=== PATIENT | female | born 1995 | race American Indian/Alaskan Native ===

== ENCOUNTER 2016-07-19 22:57 | Emergency (ER) | payer SELFPAY ==
[2016-07-19 23:22] VITALS: BP 135/95
[2016-07-20 00:21] LABS: Basophils % (Auto) 0.5 % (0.0-1.8); Eosinophils % (Auto) 1.8 % (0.0-4.3); Hemoglobin 12.2 gm/dl (10.1-14.3); Mean Corpuscular HGB Conc 33 % (30-34); Mean Corpuscular Hemoglobin 29 pg (28-32); Mean Corpuscular Volume 86 fl (79-97); Platelet Count 361 K/mm3 (140-440); Red Blood Count 4.29 M/mm3 (3.65-5.03); Red Cell Distribution Width 13.4 % (13.2-15.2); White Blood Count 6.7 K/mm3 (4.5-11.0)
[2016-07-20 00:36] LABS: Anion Gap 18 mmol/L; BUN/Creatinine Ratio 11.11; Blood Urea Nitrogen 10 mg/dL (7-17); Calcium 9.2 mg/dL (8.4-10.2); Carbon Dioxide 22 mmol/L (22-30); Glucose 100 mg/dL (65-100); Potassium 3.7 mmol/L (3.6-5.0); Sodium 139 mmol/L (137-145)
--- NOTE | 2016-07-20 15:04 | ED Elopement Review ---
ED Pt Elopement review - Results review Lab results: Laboratory Tests 07/19/16 07/19/16 23:38 23:38 WBC 6.7 RBC 4.29 Hgb 12.2 Hct 37.0 MCV 86 MCH 29 MCHC 33 RDW 13.4 Plt Count 361 Lymph % (Auto) 42.3 H Dodge % (Auto) 8.5 H Eos % (Auto) 1.8 Baso % (Auto) 0.5 Lymph # 2.8 Dodge # 0.6 Eos # 0.1 Baso # 0.0 Seg Neutrophils % 46.9 Seg Neutrophils # 3.1 Sodium 139 Potassium 3.7 Chloride 103.0 Carbon Dioxide 22 Anion Gap 18 BUN 10 Creatinine 0.9 Estimated GFR > 60 BUN/Creatinine Ratio 11.11 Glucose 100 Calcium 9.2 Troponin T < 0.010 - Call Back decision Pt Call Back Decision: No action required
== END 2016-07-20 02:03 | disposition left against medical advice (07) ==
LOC: ED 22:57
DX: R07.9 Chest pain, unspecified (principal); R42 Dizziness and giddiness; T78.40XA Allergy, unspecified, initial encounter; R55 Syncope and collapse; Z88.0 Allergy status to penicillin; Z53.21 Procedure and treatment not carried out due to patient leaving prior to being seen by health care provider
CPT/HCPCS: 36415; 80048; 84484; 85025; 93005; 93010